=== PATIENT | male | born 1970 | race African-American/Black ===

== ENCOUNTER 2017-04-21 14:02 | Emergency (ER) | payer SELFPAY ==
[~2017-04-21 14:02] MED LIST: CEPH500C3 PO; OXYC-360 PO; Z.0.NO CURRENT MEDS
[2017-04-21 14:04] VITALS: BP 178/70; PULSE 93; RESP 17; TEMP 98.2; O2SAT 100
[2017-04-21] MEDS ORDERED: ACETAMINOPHEN/HYDROcodone 325 MG/7.5 MG TAB PO ONE (15:45)
--- NOTE | 2017-04-21 15:49 | PD ---
HPI Chief Complaint: Laceration/Skin Injury Time Seen by Provider: 15:09 Travel History International Travel<30 days: No Contact w/Intl Traveler<30days: No Traveled to known affect area: No History of Present Illness HPI 46y male presents to the ED with a laceration to the left upper chest region that occurred after he was using a concrete hammer today. Says the hammer came back and hit the left side of his chest. Patient denies chronic medical issues and medication use. Denies loss of consciousness, shortness of breath, chest pain. Says he was able to control the bleeding on scene. PFSH Past Medical History Asthma: Yes Autoimmune Disease: No Blood Disorders: No Cancer: No Cardiovascular Problems: No Diabetes: No Endocrine: No Glaucoma: No Genitourinary: No Hepatitis: No Hiatal Hernia: No Immune Disorder: No Musculoskeletal: Yes (L HAND) Neurologic: No Psychiatric: No Reproductive: No Respiratory: Yes Radiation Therapy: No Sickle Cell Disease: No Thyroid Disease: No Influenza Vaccination: No Past Surgical History Abdominal Surgery: No AICD: No Arteriovenous Shunt: No Cardiac Surgery: No Ear Surgery: No Endocrine Surgery: No Eye Surgery: No Genitourinary Surgery: No Gynecologic Surgery: No Insulin Pump: No Joint Replacement: No Oral Surgery: No Pacemaker: No Thoracic Surgery: No Other Surgery: Yes (July LEFT HAND SURGERY) Social History Alcohol Use: Yes (qod) Tobacco Use: No Substance Use: No Allergies-Medications (Allergen,Severity, Reaction): Coded Allergies: No Known Allergies (Verified Allergy, Unknown, 04/21/17) Reported Meds & Prescriptions Reported Meds & Active Scripts Active Keflex (Cephalexin) 500 Mg Cap 500 Mg PO Q8H 7 Days Review of Systems Except as stated in HPI: all other systems reviewed are Neg Physical Exam Narrative GENERAL: WD, WN in mild distress SKIN: Warm and dry. left upper chest wall- diagonal laceration extending from lateral of midsternal to lower anterior neck involving musculature 5-6cm. bleeding controlled. HEAD: Atraumatic. Normocephalic. EYES: Pupils equal and round. No scleral icterus. No injection or drainage. ENT: No nasal bleeding or discharge. Mucous membranes pink and moist. NECK: Trachea midline. No JVD. CARDIOVASCULAR: Regular rate and rhythm. RESPIRATORY: No accessory muscle use. Clear to auscultation. Breath sounds equal bilaterally. GASTROINTESTINAL: Abdomen soft, non-tender, nondistended. MUSCULOSKELETAL: Extremities without clubbing, cyanosis, or edema. No obvious deformities. NEUROLOGICAL: Awake and alert. No obvious cranial nerve deficits. Motor grossly within normal limits. Five out of 5 muscle strength in the arms and legs. Normal speech. PSYCHIATRIC: Appropriate mood and affect; insight and judgment normal. Data Data Last Documented VS Vital Signs Date Time Temp Pulse Resp B/P (MAP) Pulse Ox O2 Delivery O2 Flow Rate FiO2 04/21/17 18:48 04/21/17 17:50 15 04/21/17 16:30 82 97 Room Air 04/21/17 14:04 98.2 Orders Orders Acetamin-Hydrocod 325-7.5 Mg (Dora 7.5 (04/21/17 15:45) Chest, Single Ap (04/21/17 ) Tetanus/Diphtheria Tox Adult (Tetanus/Di (04/21/17 16:15) Wound Care (04/21/17 18:15) Ed Discharge Order (04/21/17 18:19) MDM Medical Decision Making Medical Screen Exam Complete: Yes Emergency Medical Condition: Yes Differential Diagnosis neck laceration, muscle laceration, chest fracture. Narrative Course 46y male presents to the ED with a laceration to the left upper chest region that occurred after he was using a concrete hammer today. Says the hammer came back and hit the left side of his chest. Patient denies chronic medical issues and medication use. Denies loss of consciousness, shortness of breath, chest pain. Says he was able to control the bleeding on scene. Vital signs stable. Physical exam findings consistent with a 5-6 cm, linear laceration with muscle involvement to the superior lateral aspect of the laceration. Bleeding controlled. My attending, Dr. Delaney also evaluated the wound and did not request additional imaging or tests. Last Impressions Chest X-Ray 04/21/17 0000 Signed Impressions: Service Date/Time: Friday, April 21, 2017 15:53 - CONCLUSION: No acute disease. Alex Clark MD Laceration repair completed, multilayer, Steri-Strips applied. Patient be discharged with Keflex. Advised to keep the area clean and dry. Advised against going back to work for at least one week. Advised follow-up with primary care physician this week. Return for worsening or persistent symptoms. Keflex for prophylaxis. Suture removal in 7-10 days. Procedures Procedure Narrative LACERATION LOCATION: left chest, neck LENGTH: 5-6cm NUMBER OF STITCHES/CAITLYN: 15 outside, 10 inside REPAIR: The area of the laceration was prepped with Betadine and sterilely draped. The laceration was infiltrated with lidocaine 1%. The wound was copiously irrigated and explored without evidence of foreign body, tendon injury or neurovascular injury. The wound was closed using 5-0 vicryl and 5-0 prolene. This was a 3 layer repair. A sterile dressing was applied. The patient was advised to keep the dressing clean and dry. Patient tolerated the procedure well. Diagnosis Primary Impression: Laceration of neck Qualified Codes: S11.91XA - Laceration without foreign body of unspecified part of neck, initial encounter Additional Impression: Laceration of chest Qualified Codes: S21.91XA - Laceration without foreign body of unspecified part of thorax, initial encounter Referrals: [employer]oom [employer]er Supervisor Primary Care Physician Departure Forms: Tests/Procedures, Work Release Enter return to work date: Apr 28, 2017 Additional Instructions: Follow up with your primary care physician within 2-3 days. If your symptoms persist or worsen, return to the emergency department. Keep area clean and dry for 24 hours. You may bathe as normal. You may use [id number] triple antibiotic ointments for your injury daily. Change dressings daily after 24 hours. If bleeding starts, apply pressure. If he developed increased redness, swelling, or pain return to the emergency department. Suture removal in 7-10 days. Scripts Cephalexin (Keflex) 500 Mg Cap 500 MG PO Q8H for Infection for 7 Days, #21 CAP 0 Refills Prov: Haylie Ji 04/21/17 Disposition: 01 DISCHARGE HOME Condition: Stable Haylie Ji Apr 21, 2017 15:49
--- NOTE | 2017-04-21 16:03 | RADRPT ---
EXAM DATE/TIME: 04/21/2017 15:53 [facility] COMPARISON: No previous studies available for comparison. INDICATIONS : Left upper chest laceration from saw. MEDICAL HISTORY : asthma. SURGICAL HISTORY : None. ENCOUNTER: Initial ACUITY: 1 day PAIN SCORE: 9/10 LOCATION: Left upper chest FINDINGS: A single view of the chest demonstrates the lungs to be symmetrically aerated without evidence of mas s, infiltrate or effusion. The cardiomediastinal contours are unremarkable. Osseous structures are intact. CONCLUSION: No acute disease. Alex Clark MD on April 21, 2017 at 16:00 Board Certified Radiologist. This report was verified electronically.
[2017-04-21] MEDS ORDERED: TETANUS/DIPHTHERIA TOXOID ADULT 0.5 ML VIAL IM ONE (16:15)
[2017-04-21 16:30] VITALS: BP 145/78; PULSE 82; RESP 17; O2SAT 97
[2017-04-21 17:50] VITALS: RESP 15
[2017-04-21] MEDS ORDERED: CEPH-460 PO (18:17)
== END 2017-04-21 18:49 | disposition home or self-care (01) ==
LOC: NEPC 14:02
DX: S11.91XA Laceration without foreign body of unspecified part of neck, initial encounter (principal); S21.91XA Laceration without foreign body of unspecified part of thorax, initial encounter; W20.8XXA Other cause of strike by thrown, projected or falling object, initial encounter; Y93.H3 Activity, building and construction; Z23 Encounter for immunization
CPT/HCPCS: 12032; 71045; 90471; 90714

== ENCOUNTER 2017-05-02 09:41 | Emergency (ER) | payer OTHER ==
[~2017-05-02] VITALS: Ht 172.7 cm; Wt 95.5 kg
[~2017-05-02 09:41] MED LIST changes: +CEPH-460 PO; -CEPH500C3 PO; -OXYC-360 PO; -Z.0.NO CURRENT MEDS
[2017-05-02 09:44] VITALS: BP 162/81; PULSE 78; RESP 14; TEMP 98.7; O2SAT 99
--- NOTE | 2017-05-02 10:30 | PD ---
HPI Chief Complaint: Wound/Suture/Staple Re-Check Time Seen by Provider: 09:54 Travel History International Travel<30 days: No Contact w/Intl Traveler<30days: No Traveled to known affect area: No History of Present Illness HPI 46-year-old Afro[place]Citizen [place] male presents to emergency department status post laceration to the upper left anterior chest from metal pipe that he was cutting with a rotary saw, the kicked back and hit him in the left anterior chest. This occurred 11 days prior to this visit. He had stitches placed. He is here for wound check and suture removal. He has no complaints. He has no known drug allergies. PFSH Past Medical History Asthma: Yes Autoimmune Disease: No Blood Disorders: No Cancer: No Cardiovascular Problems: No Diabetes: No Endocrine: No Glaucoma: No Genitourinary: No Hepatitis: No Hiatal Hernia: No Immune Disorder: No Musculoskeletal: Yes (L HAND) Neurologic: No Psychiatric: No Reproductive: No Respiratory: Yes Radiation Therapy: No Sickle Cell Disease: No Thyroid Disease: No Past Surgical History Abdominal Surgery: No AICD: No Arteriovenous Shunt: No Cardiac Surgery: No Ear Surgery: No Endocrine Surgery: No Eye Surgery: No Genitourinary Surgery: No Gynecologic Surgery: No Insulin Pump: No Joint Replacement: No Oral Surgery: No Pacemaker: No Thoracic Surgery: No Other Surgery: Yes (July LEFT HAND SURGERY) Social History Alcohol Use: Yes (qod) Tobacco Use: No Substance Use: No Allergies-Medications (Allergen,Severity, Reaction): Coded Allergies: No Known Allergies (Verified Allergy, Unknown, 05/02/17) Reported Meds & Prescriptions Reported Meds & Active Scripts Active Keflex (Cephalexin) 500 Mg Cap 500 Mg PO Q8H 7 Days Review of Systems Except as stated in HPI: all other systems reviewed are Neg General / Constitutional: No: Fever Eyes: No: Visual changes HENT: No: Headaches Cardiovascular: No: Chest Pain or Discomfort Respiratory: No: Shortness of Breath Gastrointestinal: No: Abdominal Pain Genitourinary: No: Dysuria Musculoskeletal: No: Pain Skin: No Rash Neurologic: No: Weakness Psychiatric: No: Depression Endocrine: No: Polydipsia Hematologic/Lymphatic: No: Easy Bruising Physical Exam Narrative GENERAL: Patient is in no acute distress. SKIN: Warm and dry. Patient has a well-healed laceration scar to the left anterior upper chest with sutures in place. There is no sign of dehiscence or infection. HEAD: Atraumatic. Normocephalic. EYES: Pupils equal and round. No scleral icterus. No injection or drainage. ENT: No nasal bleeding or discharge. Mucous membranes pink and moist. Pharynx is clear. Airway is patent. NECK: Trachea midline. Supple CARDIOVASCULAR: Regular rate and rhythm. RESPIRATORY: No accessory muscle use. MUSCULOSKELETAL: Extremities without clubbing, cyanosis, or edema. No obvious deformities. NEUROLOGICAL: Awake and alert. No obvious cranial nerve deficits. Motor grossly within normal limits. Five out of 5 muscle strength in the arms and legs. Normal speech. PSYCHIATRIC: Appropriate mood and affect; insight and judgment normal. Data Data Last Documented VS Vital Signs Date Time Temp Pulse Resp B/P (MAP) Pulse Ox O2 Delivery O2 Flow Rate FiO2 05/02/17 09:44 98.7 78 14 162/81 (108) 99 Room Air MDM Medical Decision Making Medical Screen Exam Complete: Yes Emergency Medical Condition: Yes Medical Record Reviewed: Yes Differential Diagnosis Chest laceration. Wound check. Suture Narrative Course All sutures are removed without difficulty. Further medical management is not felt warranted. Diagnosis Primary Impression: Visit for suture removal Patient Instructions: General Instructions Departure Forms: Work Release Enter return to work date: May 05, 2017 Additional Instructions: All sutures are removed without difficulty. Further medical management is not felt warranted. Med/Other Pt SpecificInfo: Wound Care Disposition: DISCHARGE HOME Condition: Stable Steve Guerrier May 02, 2017 10:30
== END 2017-05-02 10:46 | disposition home or self-care (01) ==
LOC: NEPD 09:41
DX: Z48.02 Encounter for removal of sutures (principal)
CPT/HCPCS: 99281